=== PATIENT | female | born 1970 | race Hispanic/Latino ===

== ENCOUNTER → 2017-10-02 | Outpatient (CLI) | payer OTHER ==
[2017-10-02 08:39] LABS: APPEARANCE,URINE Clear (CLEAR); BILIRUBIN,URINE Negative (NEGATIVE); COLOR,URINE Yellow (YELLOW); GLUCOSE, URINE (UA) Negative (NEGATIVE); KETONES,URINE Negative (NEGATIVE); LEUKOCYTE ESTERASE ,URINE Negative (NEGATIVE); NITRATE,URINE Negative (NEGATIVE); OCCULT BLOOD,URINE Small (NEGATIVE); PROTEIN,URINE Negative (NEGATIVE)
[2017-10-02 08:40] LABS: BASOPHILS % (AUTO) 0.4 % (0.0-5.0); EOSINOPHILS % (AUTO) 1.2 % (0.0-8.0); HEMATOCRIT 38.3 % (36-48); LYMPHOCYTES % (AUTO) 36.3 % (21.0-51.0); MEAN CORPUSCULAR HEMOGLOBIN 32.9 pg (27.0-33.0); MEAN CORPUSCULAR HGB CONC 34.9 g/dL (32.0-36.0); MEAN CORPUSCULAR VOLUME 94.3 fL (79-99); MONOCYTES % (AUTO) 7.7 % (3.0-13.0); NEUTROPHILS % (AUTO) 54.4 % (40.0-77.0); PLATELET COUNT (AUTO) 270 K/uL (130-400); RED BLOOD CELL COUNT(AUTO) 4.06 MIL/uL (4.00-5.50); RED CELL DISTRIBUTION WIDTH 12.9 % (11.0-15.5); WHITE BLOOD COUNT (AUTO) 5.1 K/uL (4.8-10.8)
[2017-10-02 08:54] LABS: BACTERIA,URINE Rare /HPF (None Seen); MUCUS,URINE Few LPF (None Seen); RBC,URINE 0-1 /HPF (0-1); SQUAMOUS EPITHELIAL CELL,UR Few /HPF (0-2); WBC,URINE 0-1 /HPF (0-1)
[2017-10-02 09:01] LABS: ALBUMIN 3.8 g/dL (3.5-5.0); BILIRUBIN,TOTAL 0.4 mg/dL (0.2-1.0); CREATININE 0.7 mg/dL (0.5-1.5); POTASSIUM 4.2 mmol/L (3.5-5.1); THYROID STIMULATING HORMONE 0.7 uIU/mL (0.36-3.74); TOTAL PROTEIN, SERUM 7.4 g/dL (6.0-8.3)
== END | disposition home or self-care (01) ==
LOC: LAB 08:06
PROVIDERS: ATTEND Family Medicine
DX: E11.9 Type 2 diabetes mellitus without complications (principal)
CPT/HCPCS: 36415; 80053; 80061; 81001; 83036; 84443; 85025

== ENCOUNTER → 2018-06-24 | Outpatient (CLI) | payer OTHER ==
[2018-06-24 10:00] LABS: HEMATOCRIT 38.5 % (36-48); PLATELET COUNT (AUTO) 246 K/uL (130-400); RED BLOOD CELL COUNT(AUTO) 3.97 MIL/uL (4.00-5.50); RED CELL DISTRIBUTION WIDTH 12.8 % (11.0-15.5); WHITE BLOOD COUNT (AUTO) 5.6 K/uL (4.8-10.8)
[2018-06-24 10:08] LABS: HEMOGLOBIN A1C 5.9 % (4.0-6.0)
== END | disposition home or self-care (01) ==
LOC: LAB 09:16
PROVIDERS: ATTEND Obstetrics & Gynecology
DX: R53.83 Other fatigue (principal); R68.82 Decreased libido
CPT/HCPCS: 36415; 82670; 83001; 83036; 84402; 84403; 85027

== ENCOUNTER → 2018-09-30 | Outpatient (CLI) | payer OTHER | END | disposition home or self-care (01) | LOC: RAH 12:40 | PROVIDERS: ATTEND Obstetrics & Gynecology | DX: D25.9 Leiomyoma of uterus, unspecified (principal); N83.202 Unspecified ovarian cyst, left side | CPT/HCPCS: 76856 ==

== ENCOUNTER 2018-11-05 06:47 | Day surgery (SDC) | payer OTHER ==
[2018-11-03 15:09] VITALS: BP 145/57
[2018-11-03 15:14] LABS: BASOPHILS % (AUTO) 1.2 % (0.0-5.0); EOSINOPHILS % (AUTO) 0.8 % (0.0-8.0); HEMATOCRIT 36.9 % (36-48); LYMPHOCYTES % (AUTO) 31.1 % (21.0-51.0); MEAN CORPUSCULAR HEMOGLOBIN 33.9 pg (27.0-33.0); MEAN CORPUSCULAR HGB CONC 34.9 g/dL (32.0-36.0); MEAN CORPUSCULAR VOLUME 97.3 fL (79-99); MONOCYTES % (AUTO) 7.7 % (3.0-13.0); NEUTROPHILS % (AUTO) 59.2 % (40.0-77.0); PLATELET COUNT (AUTO) 318 K/uL (130-400); RED BLOOD CELL COUNT(AUTO) 3.79 MIL/uL (4.00-5.50); RED CELL DISTRIBUTION WIDTH 12.7 % (11.0-15.5); WHITE BLOOD COUNT (AUTO) 8.5 K/uL (4.8-10.8)
[~2018-11-05] VITALS: Ht 162.6 cm; Wt 68.3 kg
[2018-11-05] VITALS (11 sets, daily range): BP systolic 99–141; BP diastolic 55–92
[~2018-11-05 06:47] MED LIST: BUPR300T53 PO; LACTATED RINGERS 1000ML 1,000 ML IV SCH
[2018-11-05] MEDS: CEFAZOLIN SODIUM 1 GM VIAL IVP SCH ×2 (08:15→10:50)
[2018-11-05] MEDS: CALDOLOR 800MG+NS 250ML 250 ML IV SCH ×2 (08:15→10:40)
[2018-11-05] MEDS ORDERED: SCOPOLAMINE HYDROBROMIDE 1 EACH ADH..PATCH TD ONE (10:36)
[2018-11-05] MEDS ORDERED: CITRIC ACID/SODIUM CITRATE 30 ML UDCUP ONE (10:37)
[2018-11-05] MEDS ORDERED: LIDOCAINE HCL MPF 1% 5ML VIAL ONE (10:40)
[2018-11-05] MEDS ORDERED: MIDAZOLAM HCL 1 MG/ML 2ML VIAL ONE (10:41)
[2018-11-05] MEDS ORDERED: PROPOFOL 10 MG/ML 20ML VIAL IV ONE (10:41)
[2018-11-05] MEDS ORDERED: FENTANYL CITRATE PF 50 MCG/1 ML 2ML VIAL ONE (10:41)
[2018-11-05] MEDS ORDERED: ONDANSETRON HCL 4 MG/2 ML VIAL ONE (10:58)
[2018-11-05] MEDS ORDERED: DEXAMETHASONE SOD PHOSPHATE 4 MG/ML 1ML VIAL ONE (10:58)
== END 2018-11-05 13:11 | disposition home or self-care (01) ==
LOC: DAH 06:47
PROVIDERS: ATTEND Obstetrics & Gynecology
DX: N92.1 Excessive and frequent menstruation with irregular cycle (principal); N39.3 Stress incontinence (female) (male); N81.10 Cystocele, unspecified; J45.909 Unspecified asthma, uncomplicated; E11.9 Type 2 diabetes mellitus without complications; I10 Essential (primary) hypertension; Z98.890 Other specified postprocedural states; Z79.899 Other long term (current) drug therapy
CPT/HCPCS: 36415; 57240; 58563; 84703; 85025; 86850; 86900; 86901; A4218; A4351; A4355; A4930; J0690; J1100; J1741; J2250; J2405; J2704; J3010; J3490; J7030 ×2; J7120

== ENCOUNTER → 2019-04-22 | Outpatient (CLI) | payer OTHER ==
[~2019-04-22] MED LIST changes: -LACTATED RINGERS 1000ML 1,000 ML IV SCH
[2019-04-22 13:38] LABS: HEMATOCRIT 35.7 % (36-48)
== END | disposition home or self-care (01) ==
LOC: LAB 13:12
PROVIDERS: ATTEND Obstetrics & Gynecology
DX: D64.9 Anemia, unspecified (principal)
CPT/HCPCS: 36415; 85014; 85018

== ENCOUNTER 2019-07-29 09:00 | Observation (INO) | payer OTHER ==
[2019-07-28 16:39] LABS: BASOPHILS % (AUTO) 0.5 % (0.0-5.0); HEMATOCRIT 34.1 % (36-48); LYMPHOCYTES % (AUTO) 32.7 % (21.0-51.0); MEAN CORPUSCULAR HGB CONC 33.4 g/dL (32.0-36.0); MEAN CORPUSCULAR VOLUME 98.8 fL (79-99); MONOCYTES % (AUTO) 7.9 % (3.0-13.0); NEUTROPHILS % (AUTO) 58.7 % (40.0-77.0); PLATELET COUNT (AUTO) 227 K/uL (130-400); RED BLOOD CELL COUNT(AUTO) 3.45 MIL/uL (4.00-5.50); RED CELL DISTRIBUTION WIDTH 12.7 % (11.0-15.5); WHITE BLOOD COUNT (AUTO) 6.5 K/uL (4.8-10.8)
[2019-07-28 17:02] VITALS: BP 121/59
[2019-07-29] VITALS (22 sets, daily range): BP systolic 119–154; BP diastolic 53–78
[~2019-07-29] VITALS: Ht 162.6 cm; Wt 68.0 kg
[~2019-07-29 09:00] MED LIST changes: -BUPR300T53 PO; +LACTATED RINGERS 1000ML 1,000 ML IV SCH
[2019-07-29] MEDS: CEFAZOLIN SODIUM 1 GM VIAL IVP SCH ×2 (10:00→11:15)
[2019-07-29] MEDS: CALDOLOR 800MG+NS 250ML 250 ML IV SCH ×3 (10:00→21:39)
[2019-07-29] MEDS ORDERED: SUCCINYLCHOLINE 200MG/10ML SYR ONE (10:53)
[2019-07-29] MEDS ORDERED: MIDAZOLAM HCL 1 MG/ML 5ML VIAL ONE (10:53)
[2019-07-29] MEDS ORDERED: LIDOCAINE PF 2% 5ML ABBOJECT ONE (10:53)
[2019-07-29] MEDS ORDERED: ROCURONIUM 10MG/1ML SYR 10 MG/ML ML ONE (10:53)
[2019-07-29] MEDS ORDERED: FENTANYL CITRATE PF 50 MCG/1 ML 5ML AMP IV ONE (10:53)
[2019-07-29] MEDS ORDERED: PROPOFOL 10 MG/ML 20ML VIAL IV ONE (10:53)
[2019-07-29] MEDS ORDERED: MEPERIDINE-PF 25 MG/ML SYG ONE ×3 (10:54→14:12)
[2019-07-29] MEDS ORDERED: KETAMINE HCL 50MG/ML 10ML VIAL IJ ONE (11:13)
[2019-07-29] MEDS ORDERED: DEXAMETHASONE SOD PHOSPHATE 10MG/ML 1ML VIAL ONE (11:26)
[2019-07-29] MEDS ORDERED: ONDANSETRON HCL 4 MG/2 ML VIAL ONE (11:26)
[2019-07-29] MEDS ORDERED: NEOSTIGMINE 5MG/5ML SYR IV ONE (12:20)
[2019-07-29] MEDS ORDERED: GLYCOPYRROLATE 1 MG/5 ML SYRINGE ONE (12:20)
[2019-07-29] MEDS ORDERED: DEXTROSE 5%-LACTATED RINGERS 1,000 ML IV PRN (12:42)
[2019-07-29] MEDS ORDERED: ONDANSETRON HCL 4 MG/2 ML VIAL IVP PRN (12:45)
[2019-07-29] MEDS ORDERED: SIMETHICONE 80 MG TAB.CHEW PO PRN (12:45)
[2019-07-29] MEDS ORDERED: HYDROCODONE/ACETAMINOPHEN 5/325 MG TAB PO PRN (12:45)
[2019-07-29] MEDS ORDERED: PROMETHAZINE HCL 25 MG/ML 1ML AMPULE IM PRN ×2 (12:45)
[2019-07-29] MEDS ORDERED: ACETAMINOPHEN-CODEINE 300/30MG TAB PO PRN (12:45)
[2019-07-29] MEDS ORDERED: BISACODYL 10 MG SUPP.RECT RC PRN (12:45)
[2019-07-29] MEDS ORDERED: DOCUSATE SODIUM 100 MG CAP PO PRN (12:45)
[2019-07-29] MEDS ORDERED: MEPERIDINE-PF 75 MG/ML SYG IM PRN (12:45)
[2019-07-29] MEDS ORDERED: MEPERIDINE-PF 100 MG/ML SYG ONE (20:08)
[2019-07-30 03:43] VITALS: BP 108/58
--- NOTE | 2019-07-30 04:00 | NUR ---
PATIENT ACTIVITY GRAVES CATHETER DISCONTINUED. PATIENT ASSISTED TO SIT ON EDGE OF BED TO DANGLE LEGS. PATIENT TOLERATED WELL. PATIENT INSTRUCTED TO CALL FOR ASSISTANCE IF NEEDING TO VOID OR WHEN READY TO GET UP TO SIT IN BEDSIDE CHAIR.
--- NOTE | 2019-07-30 04:45 | NUR ---
PATIENT ACTIVITY PATIENT ASSISTED INTO BEDSIDE CHAIR. PATIENT TOLERATING WELL. PATIENT STATED NO PAIN OR DISCOMFORT AT THIS TIME.
--- NOTE | 2019-07-30 05:00 | NUR ---
PATIENT ACTIVITY PATIENT ASSISTED TO BATHROOM. PATIENT TOLERATED WELL AND WAS ABLE TO VOID 100ML OF URINE. PATIENT ASSISTED BACK INTO BEDSIDE CHAIR.
[2019-07-30] MEDS: CALDOLOR 800MG+NS 250ML 250 ML IV SCH (05:09)
[2019-07-30 05:20] LABS: HEMATOCRIT 32.1 % (36-48); MEAN CORPUSCULAR HEMOGLOBIN 32.7 pg (27.0-33.0); MEAN CORPUSCULAR VOLUME 99.1 fL (79-99); PLATELET COUNT (AUTO) 207 K/uL (130-400); RED BLOOD CELL COUNT(AUTO) 3.24 MIL/uL (4.00-5.50); RED CELL DISTRIBUTION WIDTH 12.5 % (11.0-15.5); WHITE BLOOD COUNT (AUTO) 10.9 K/uL (4.8-10.8)
--- NOTE | 2019-07-30 07:20 | NUR ---
PATIENT WAS BEING ASSESSED WHEN DR. BARBOZA CALLED AND UPDATED STATUS ON PATIENT GIVEN ORDER RECEIVED TO DISCHARGE PATIENT. PATIENT IS STABLE AND DENIES PAIN.
[2019-07-30 07:22] VITALS: BP 121/81
--- NOTE | 2019-07-30 08:45 | NUR ---
DISCHARGE INSTRUCTIONS GIVEN AND PATIENT VERBALIZED GETTING SCRIPT FOR PAIN MANAGEMENT ON LAST VISIT TO DR. BARBOZA OFFICE. DISCHARGE DONE AND PATIENT VERBALIZED HAVING NO QUESTIONS. INDICATED HAVING GOTTEN SCRIPT FOR NORCO AND NOTL TYLENOL #3.
--- NOTE | 2019-07-30 09:00 | NUR ---
PATIENT WAS TAKEN VIA W/C TO FAMILY VEHICLE AND WAS DISCHARGED TO SPOUSE.
== END 2019-07-30 09:00 | disposition home or self-care (01) ==
LOC: EDSTATUS 09:30 → DAHIP 10:00 → WSH 14:07
PROVIDERS: ADMIT Obstetrics & Gynecology; ATTEND Obstetrics & Gynecology
DX: N92.1 Excessive and frequent menstruation with irregular cycle (principal)
CPT/HCPCS: 36415 ×2; 58262; 84703; 85025; 85027; 86850; 86900; 86901; 88305; 88307; 96365; 96366; 96372; 96375; A4213; A4215; A4221; A4222; A4223; A4344; A4351; A4510; A4600; A4663; A6260; G0378 ×20; J0330; J0690; J1100; J1741 ×3; J2001; J2175 ×4; J2250; J2405 ×2; J2550 ×2; J2704; J2710; J3010; J3490 ×2; J7030; J7120; 96376

== ENCOUNTER → 2019-09-27 | Outpatient (CLI) | payer OTHER ==
[2019-09-27 14:32] LABS: MEAN CORPUSCULAR HEMOGLOBIN 31.5 pg (27.0-33.0); MEAN CORPUSCULAR HGB CONC 33.2 g/dL (32.0-36.0); MEAN CORPUSCULAR VOLUME 94.6 fL (79-99); PLATELET COUNT (AUTO) 274 K/uL (130-400); RED BLOOD CELL COUNT(AUTO) 3.91 MIL/uL (4.00-5.50); RED CELL DISTRIBUTION WIDTH 11.6 % (11.0-15.5); WHITE BLOOD COUNT (AUTO) 5.9 K/uL (4.8-10.8)
[2019-09-27 15:02] LABS: HEMOGLOBIN A1C 6.2 % (4.0-6.0)
[2019-09-27 15:04] LABS: THYROID STIMULATING HORMONE 0.58 uIU/mL (0.36-3.74)
== END | disposition home or self-care (01) ==
LOC: LAB 11:20
PROVIDERS: ATTEND Obstetrics & Gynecology
DX: N95.1 Menopausal and female climacteric states (principal)
CPT/HCPCS: 36415; 80061; 82670; 83001; 83036; 84403; 84443; 85027

== ENCOUNTER → 2020-02-14 | Outpatient (CLI) | payer OTHER ==
[2020-02-14 11:14] LABS: HEMOGLOBIN A1C 6.2 % (4.0-6.0)
== END | disposition home or self-care (01) ==
LOC: LAB 08:44
PROVIDERS: ATTEND Obstetrics & Gynecology
DX: R53.83 Other fatigue (principal)
CPT/HCPCS: 36415; 82306; 82670; 83001; 83036; 84144; 84402; 84403; 84443

== ENCOUNTER → 2020-04-03 | Outpatient (CLI) | payer OTHER | END | disposition home or self-care (01) | LOC: RAH 10:22 | PROVIDERS: ATTEND Obstetrics & Gynecology | DX: Z12.31 Encounter for screening mammogram for malignant neoplasm of breast (principal) | CPT/HCPCS: 77067 ==

== ENCOUNTER → 2020-07-23 | Outpatient (CLI) | payer OTHER ==
[2020-07-23 10:50] LABS: THYROID STIMULATING HORMONE 0.69 uIU/mL (0.36-3.74)
== END | disposition home or self-care (01) ==
LOC: LAB 09:56
PROVIDERS: ATTEND Obstetrics & Gynecology
DX: R53.83 Other fatigue (principal)
CPT/HCPCS: 36415; 80061; 82670; 83001; 83036; 84403; 84439; 84443; 84481

== ENCOUNTER → 2021-11-29 | Outpatient (CLI) | payer BC | END | disposition home or self-care (01) | LOC: RAH 14:41 | PROVIDERS: ATTEND Family Medicine | DX: Z12.31 Encounter for screening mammogram for malignant neoplasm of breast (principal) | CPT/HCPCS: 77067 ==